=== PATIENT | female | born 1960 | race Two or more races ===

== ENCOUNTER 2024-11-15 05:40 | Day surgery (SDC) | payer OTHER ==
[2024-11-05 09:32] VITALS: BMI 20.1
[2024-11-15 13:09] VITALS: RESP 16
[2024-11-15] MEDS: BUPIVACAINE HCL/PF 0.5% (5 MG/ML) 30 ML VIAL IJ ONE (15:16)
[2024-11-15 15:47] VITALS: BP 113/75; PULSE 97; TEMP 97.7
== END 2024-11-15 15:55 | disposition home or self-care (01) ==
LOC: JASU-SURG 05:40
PROVIDERS: ATTEND Pain Medicine Pain Medicine
PROC: 3E0T33Z Introduction of Anti-inflammatory into Peripheral Nerves and Plexi, Percutaneous Approach (ICD-10-PCS; 2024-11-15)
PROC: 3E0T3BZ Introduction of Anesthetic Agent into Peripheral Nerves and Plexi, Percutaneous Approach (ICD-10-PCS; principal; 2024-11-15 15:15)
DX: M47.812 Spondylosis without myelopathy or radiculopathy, cervical region (principal)
CPT/HCPCS: 76000-TC-FY

== ENCOUNTER 2024-12-13 07:07 | Day surgery (SDC) | payer OTHER ==
[2024-12-13 11:52] VITALS: BP 129/62; PULSE 77; RESP 16; TEMP 98.4
[2024-12-13] MEDS: LIDOCAINE HCL 1% PRESERVATIVE FREE - 30ML VIAL IJ ONE (12:57)
[2024-12-13] MEDS: IOHEXOL 180 MG/1 ML ML IJ ONE (12:57)
[2024-12-13] MEDS: BUPIVACAINE HCL/PF 0.5% (5MG/ML) 10 ML VIAL IJ ONE ×2 (12:57)
== END 2024-12-13 13:27 | disposition home or self-care (01) ==
LOC: JASU-SURG 07:07
PROVIDERS: ATTEND Pain Medicine Pain Medicine
PROC: 3E0T33Z Introduction of Anti-inflammatory into Peripheral Nerves and Plexi, Percutaneous Approach (ICD-10-PCS; 2024-12-13)
PROC: 3E0T3BZ Introduction of Anesthetic Agent into Peripheral Nerves and Plexi, Percutaneous Approach (ICD-10-PCS; principal; 2024-12-13 12:15)
DX: M47.812 Spondylosis without myelopathy or radiculopathy, cervical region (principal)
CPT/HCPCS: 76000-TC-FY